=== PATIENT | male | born 1960 | race Caucasian/White ===

== ENCOUNTER 2023-08-31 17:29 | Emergency (ER) | payer MEDICAID ==
[~2023-08-31] VITALS: Ht 167.6 cm; Wt 90.7 kg
== END 2023-08-31 19:29 | disposition left against medical advice (07) ==
LOC: ED 17:29
DX: R19.5 Other fecal abnormalities (principal); R51.9 Headache, unspecified; M79.89 Other specified soft tissue disorders; I10 Essential (primary) hypertension; Z53.29 Procedure and treatment not carried out because of patient's decision for other reasons

== ENCOUNTER 2023-09-01 17:37 | Emergency (ER) | payer MEDICAID ==
[~2023-09-01] VITALS: Ht 167.6 cm; Wt 90.7 kg
[2023-09-01] MEDS ORDERED: IOHEXOL 300 MG/ML 100 ML VIAL IV ONE (18:05)
[2023-09-01 18:31] LABS: BASO % 0.3 % (0.0-1.0); EOS # 0.2 10*3/uL (0.0-0.4); EOS % 2.8 % (1.0-4.0); HEMATOCRIT 38.9 % (42.0-52.0); LYMPH # 1.3 10*3/uL (1.3-4.4); LYMPH % 22.5 % (27.0-41.0); MEAN CELL VOLUME 101.3 fl (80.0-94.0); MEAN CORPUSCULAR HGB 32.6 pg (27.0-31.0); MEAN CORPUSCULAR HGB CONC 32.1 g/dl (33.0-37.0); MEAN PLATELET VOLUME 10.4 fl (9.6-12.3); MONO # 0.6 10*3/uL (0.1-1.0); MONO % 10.6 % (3.0-9.0); NEUT # 3.6 10*3/uL (2.3-7.9); NEUT % 63.5 % (47.0-73.0); PLATELET COUNT AUTOMATED 132 10*3/uL (130-400); RED BLOOD COUNT 3.84 10*6/uL (4.50-5.90); RED CELL DISTRI WIDTH 14.4 % (0-14.5); WHITE BLOOD COUNT 5.7 10*3/uL (4.8-10.8)
[2023-09-01 18:56] LABS: ALKALINE PHOSPHATASE 77 U/L (46-116); BUN 15 mg/dl (9-23); CHLORIDE 107 mmol/L (98-107); LIPASE 41 U/L (12-53); POTASSIUM 3.8 mmol/L (3.4-5.1); SGPT/ALT 16 U/L (5-49)
[2023-09-01] MEDS ORDERED: ACETAMINOPHEN 325 MG TAB PO ONE (22:35)
== END 2023-09-01 22:50 | disposition home or self-care (01) ==
LOC: ED 17:37
PROVIDERS: Internal Medicine
DX: M19.90 Unspecified osteoarthritis, unspecified site (principal); K62.5 Hemorrhage of anus and rectum; M54.9 Dorsalgia, unspecified; K92.0 Hematemesis; Z85.048 Personal history of other malignant neoplasm of rectum, rectosigmoid junction, and anus